=== PATIENT | female | born 1950 | race Hispanic/Latino ===

== ENCOUNTER 2019-12-18 02:54 | Inpatient (IN) | payer BC, OTHER ==
[~2019-12-18] VITALS: Ht 157.5 cm; Wt 74.5 kg
[2019-12-18 03:30] LABS: BASOPHILS % (AUTO) 0.5 % (0.0-5.0); HEMATOCRIT 38.2 % (36-48); LYMPHOCYTES % (AUTO) 39.7 % (21.0-51.0); MEAN CORPUSCULAR HEMOGLOBIN 29.3 pg (27.0-33.0); MEAN CORPUSCULAR HGB CONC 33.8 g/dL (32.0-36.0); MEAN CORPUSCULAR VOLUME 86.8 fL (79-99); NEUTROPHILS % (AUTO) 45.4 % (40.0-77.0); PLATELET COUNT (AUTO) 209 K/uL (130-400); RED CELL DISTRIBUTION WIDTH 13.3 % (11.0-15.5); WHITE BLOOD COUNT (AUTO) 9.4 K/uL (4.8-10.8)
[2019-12-18 03:38] LABS: CREATININE 0.8 mg/dL (0.5-1.5); POTASSIUM 5.8 mmol/L (3.5-5.1)
[2019-12-18 03:40] LABS: APPEARANCE,URINE Clear (CLEAR); BILIRUBIN,URINE Negative (NEGATIVE); COLOR,URINE Yellow (YELLOW); GLUCOSE, URINE (UA) Negative (NEGATIVE); KETONES,URINE Negative (NEGATIVE); LEUKOCYTE ESTERASE ,URINE Trace (NEGATIVE); NITRATE,URINE Negative (NEGATIVE); OCCULT BLOOD,URINE Moderate (NEGATIVE); PROTEIN,URINE Negative (NEGATIVE); UROBILINOGEN,URINE 0.2 mg/dL (0.2-1.0)
[2019-12-18 03:43] LABS: BILIRUBIN,TOTAL 0.4 mg/dL (0.2-1.0); INR 0.95 (0.85-1.15); PARTIAL THROMBOPLASTIN TIME 26.2 SEC (26.3-35.5); PROTHROMBIN TIME 10.3 SEC (9.6-11.6); TOTAL PROTEIN, SERUM 7.6 g/dL (6.0-8.3)
[2019-12-18 03:49] LABS: BACTERIA,URINE None Seen /HPF (None Seen); MUCUS,URINE Rare LPF (None Seen); RBC,URINE 0-1 /HPF (0-1); SQUAMOUS EPITHELIAL CELL,UR Few /HPF (0-2); WBC,URINE 0-1 /HPF (0-1)
[2019-12-18] MEDS: SODIUM CHLORIDE 0.9% 1000ML 1,000 ML IV SCH ×2 (05:36→15:36)
[2019-12-18] MEDS ORDERED: METRONIDAZOLE 500MG/100ML BAG 100 ML IV SCH (05:45)
[2019-12-18] MEDS ORDERED: HYDRALAZINE HCL 20 MG/ML VIAL IV PRN (05:45)
[2019-12-18] MEDS ORDERED: ONDANSETRON HCL 4 MG/2 ML VIAL IV PRN (05:45)
[2019-12-18] MEDS ORDERED: LACTULOSE 20 GM/30 ML UDCUP PO PRN (05:45)
[2019-12-18] MEDS ORDERED: ACETAMINOPHEN 325 MG TAB PO PRN ×2 (05:45)
[2019-12-18] MEDS ORDERED: METRONIDAZOLE 500MG/100ML BAG 100 ML ONE (05:53)
[2019-12-18] MEDS ORDERED: FAMOTIDINE/PF 20 MG/2 ML VIAL IV ONE (08:22)
[2019-12-18] MEDS ORDERED: FAMOTIDINE/PF 20 MG/2 ML VIAL IV SCH (09:00)
[2019-12-18 09:35] VITALS: BP 150/79
[2019-12-18 09:47] LABS: HEMATOCRIT 36.6 % (36-48)
[2019-12-18] MEDS ORDERED: CARV6.25 PO (11:30)
[2019-12-18] MEDS ORDERED: LISI-613 PO (11:30)
[2019-12-18] MEDS ORDERED: ALEN70TA69 PO (11:30)
[2019-12-18] MEDS ORDERED: ATOR10TA69 PO (11:30)
[2019-12-18] MEDS ORDERED: ISOS20TA7 PO (11:30)
[2019-12-18] MEDS ORDERED: LEVO100 PO (11:30)
[2019-12-18] MEDS ORDERED: ASPI-556 PO (11:31)
[2019-12-18 12:01] VITALS: BP 124/71
[2019-12-18] MEDS: PANTOPRAZOLE 40 MG/VIAL IVP SCH (15:29)
[2019-12-18 15:49] VITALS: BP 142/78
[2019-12-18 19:53] VITALS: BP 122/68
[2019-12-18 21:00] LABS: HEMATOCRIT 33.2 % (36-48)
[2019-12-18 23:21] VITALS: BP 152/79
[2019-12-18 23:32] LABS: HEMATOCRIT 31.4 % (36-48)
[2019-12-19 03:47] VITALS: BP 121/78
[2019-12-19 05:43] LABS: BASOPHILS % (AUTO) 0.6 % (0.0-5.0); EOSINOPHILS % (AUTO) 6.8 % (0.0-8.0); LYMPHOCYTES % (AUTO) 36.5 % (21.0-51.0); MEAN CORPUSCULAR HEMOGLOBIN 28.8 pg (27.0-33.0); MEAN CORPUSCULAR HGB CONC 32.8 g/dL (32.0-36.0); MEAN CORPUSCULAR VOLUME 87.9 fL (79-99); MONOCYTES % (AUTO) 8.7 % (3.0-13.0); NEUTROPHILS % (AUTO) 46.9 % (40.0-77.0); PLATELET COUNT (AUTO) 178 K/uL (130-400); RED BLOOD CELL COUNT(AUTO) 3.64 MIL/uL (4.00-5.50); RED CELL DISTRIBUTION WIDTH 13.4 % (11.0-15.5); WHITE BLOOD COUNT (AUTO) 6.6 K/uL (4.8-10.8)
[2019-12-19 06:03] LABS: ALBUMIN 2.6 g/dL (3.5-5.0); BILIRUBIN,TOTAL 0.3 mg/dL (0.2-1.0); CREATININE 0.9 mg/dL (0.5-1.5); POTASSIUM 3.9 mmol/L (3.5-5.1)
[2019-12-19 08:50] VITALS: BP 115/74
[2019-12-19] MEDS: PANTOPRAZOLE 40 MG/VIAL IVP SCH (08:57)
[2019-12-19 12:37] VITALS: BP 110/63
[2019-12-19 16:07] VITALS: BP 155/59
--- NOTE | 2019-12-19 19:53 | NUR ---
D/C PLAN CM spoke to pt regarding d/c planning. Pt is [place] and lives with spouse. States spouse can assist in care if needed. Denies having any home health or provider services. Plan to home. No needs verbalized or identified. CM to f/u. Addendum: 12/19/19 at 1954 by TEETEE PUGH CM Amended: Links added.
[2019-12-19 20:00] VITALS: BP 138/74
[2019-12-19] MEDS: ATORVASTATIN CALCIUM 10 MG TABLET PO SCH (20:27)
[2019-12-19] MEDS ORDERED: LISINOPRIL 20 MG TABLET PO SCH (21:00)
[2019-12-20] VITALS (12 sets, daily range): BP systolic 90–133; BP diastolic 53–75
[2019-12-20 05:30] LABS: ALBUMIN 2.6 g/dL (3.5-5.0); BILIRUBIN,TOTAL 0.2 mg/dL (0.2-1.0); CREATININE 0.7 mg/dL (0.5-1.5); TOTAL PROTEIN, SERUM 6.3 g/dL (6.0-8.3)
[2019-12-20] MEDS: PANTOPRAZOLE 40 MG/VIAL IVP SCH (08:58)
[2019-12-20] MEDS ORDERED: CARVEDILOL 6.25 MG TABLET PO SCH (09:00)
[2019-12-20] MEDS ORDERED: LEVOTHYROXINE 100 MCG TABLET PO SCH (09:00)
[2019-12-20] MEDS ORDERED: ISOSORBIDE MONONITRATE 20 MG TABLET PO SCH (09:00)
[2019-12-20] MEDS: AMOXICILLIN/POTASSIUM CLAV 500-125 TABLET PO SCH ×2 (11:17→20:34)
[2019-12-20] MEDS: ATORVASTATIN CALCIUM 10 MG TABLET PO SCH (20:34)
[2019-12-21 04:00] VITALS: BP 122/69
[2019-12-21] MEDS: SODIUM CHLORIDE 0.9% 1000ML 1,000 ML IV SCH ×2 (04:21→04:23)
[2019-12-21 05:41] LABS: BASOPHILS % (AUTO) 0.3 % (0.0-5.0); EOSINOPHILS % (AUTO) 5.7 % (0.0-8.0); LYMPHOCYTES % (AUTO) 34.3 % (21.0-51.0); MEAN CORPUSCULAR HEMOGLOBIN 28.8 pg (27.0-33.0); MEAN CORPUSCULAR HGB CONC 32.7 g/dL (32.0-36.0); MEAN CORPUSCULAR VOLUME 88.2 fL (79-99); MONOCYTES % (AUTO) 8.1 % (3.0-13.0); NEUTROPHILS % (AUTO) 51.3 % (40.0-77.0); PLATELET COUNT (AUTO) 165 K/uL (130-400); RED CELL DISTRIBUTION WIDTH 13.6 % (11.0-15.5); WHITE BLOOD COUNT (AUTO) 5.8 K/uL (4.8-10.8)
[2019-12-21 05:54] LABS: ALBUMIN 2.4 g/dL (3.5-5.0); BILIRUBIN,TOTAL 0.2 mg/dL (0.2-1.0); CREATININE 0.6 mg/dL (0.5-1.5); POTASSIUM 3.7 mmol/L (3.5-5.1); TOTAL PROTEIN, SERUM 5.8 g/dL (6.0-8.3)
[2019-12-21] MEDS ORDERED: LEVOTHYROXINE 100 MCG TABLET PO SCH (06:30)
[2019-12-21 07:20] VITALS: BP 145/80
[2019-12-21] MEDS: PANTOPRAZOLE 40 MG/VIAL IVP SCH (08:53)
[2019-12-21] MEDS: AMOXICILLIN/POTASSIUM CLAV 500-125 TABLET PO SCH (08:53)
[2019-12-21] MEDS ORDERED: PANT40TA55 PO (08:55)
[2019-12-21] MEDS ORDERED: AMOX1TAB15 PO (08:55)
[2019-12-21] MEDS ORDERED: CARV6.25 PO (08:55)
[2019-12-21 10:37] VITALS: BP 138/73
--- NOTE | 2019-12-21 12:29 | NUR ---
DISCHARGE PATIENT GIVEN DISCHARGE INSTRUCTIONS VIA TEACH BACK. 20G PIV TO LEFT HAND DISCONTINUED, TIP INTACT. MEDS TRANSMITTED TO [facility] IN [place] FOR BACTRIM DS AND PROTONIX. PATIENT TO FOLLOW UP WITH DR. REYES AND DR. MCDERMOTT. PATIENT STABLE AT THIS TIME. PATIENT WHEELED TO [facility] FOR DISCHARGE BY STARR ARANGO.
[2019-12-26] MEDS ORDERED: ALENDRONATE SODIUM 35 MG TAB PO SCH (06:30)
== END 2019-12-21 12:45 | disposition home or self-care (01) | DRG 378 ==
LOC: EDH 02:54 → EDHIP 05:36 → OBSVTOIN 05:36 → 3AH 08:54
PROVIDERS: ADMIT Hospitalist; ATTEND Hospitalist
DX: K57.31 Diverticulosis of large intestine without perforation or abscess with bleeding (principal); D62 Acute posthemorrhagic anemia; E44.1 Mild protein-calorie malnutrition; I95.1 Orthostatic hypotension; E87.5 Hyperkalemia; E03.9 Hypothyroidism, unspecified; K42.9 Umbilical hernia without obstruction or gangrene; E78.00 Pure hypercholesterolemia, unspecified; I10 Essential (primary) hypertension; Z87.19 Personal history of other diseases of the digestive system; Z83.3 Family history of diabetes mellitus; Z82.49 Family history of ischemic heart disease and other diseases of the circulatory system
CPT/HCPCS: 36415; 74176; 80053; 81001; 82270; 83630; 84132; 85014; 85018; 85025; 85610; 85730; 86850; 86900; 86901; 86922; 87046; 87324; C9113; G0378; J3490; J7030

== ENCOUNTER 2022-01-07 10:23 | Observation (INO) | payer OTHER ==
[~2022-01-07] VITALS: Ht 157.5 cm; Wt 73.5 kg
[~2022-01-07 10:23] MED LIST: ALEN70TA80 PO; AMOX1TAB15 PO; ATOR10TA69 PO; CARV6.25 PO; ISOS20TA85 PO; LEVO100 PO; PANT40TA55 PO
[2022-01-07 11:32] LABS: BASOPHILS % (AUTO) 0.5 % (0.0-5.0); HEMATOCRIT 40.7 % (36-48); LYMPHOCYTES % (AUTO) 42.5 % (21.0-51.0); MEAN CORPUSCULAR HEMOGLOBIN 28.5 pg (27.0-33.0); MEAN CORPUSCULAR HGB CONC 33.2 g/dL (32.0-36.0); MEAN CORPUSCULAR VOLUME 85.9 fL (79-99); MONOCYTES % (AUTO) 8.8 % (3.0-13.0); NEUTROPHILS % (AUTO) 43.8 % (40.0-77.0); PLATELET COUNT (AUTO) 204 K/uL (130-400); RED BLOOD CELL COUNT(AUTO) 4.74 MIL/uL (4.00-5.50); RED CELL DISTRIBUTION WIDTH 14.2 % (11.0-15.5); WHITE BLOOD COUNT (AUTO) 7.3 K/uL (4.8-10.8)
[2022-01-07 11:52] LABS: CREATININE 1.1 mg/dL (0.5-1.5); POTASSIUM 3.5 mmol/L (3.5-5.1)
[2022-01-07 11:55] LABS: INR 0.95 (0.85-1.15); PROTHROMBIN TIME 10.4 SEC (9.6-11.6)
[2022-01-07 11:56] LABS: ALBUMIN 2.8 g/dL (3.5-5.0); BILIRUBIN,TOTAL 0.3 mg/dL (0.2-1.0); PARTIAL THROMBOPLASTIN TIME 29.1 SEC (26.3-35.5); TOTAL PROTEIN, SERUM 7.7 g/dL (6.0-8.3)
[2022-01-07] MEDS ORDERED: 0.9%NACL 1000ML 1,000 ML IV SCH (13:30)
[2022-01-07] MEDS ORDERED: HYDRALAZINE 20MG/ML VIAL IV PRN (15:30)
[2022-01-07] MEDS ORDERED: HYDROCODONE/ACETAMINOPHEN 5/325 MG TAB PO PRN ×2 (15:30)
[2022-01-07] MEDS ORDERED: ACETAMINOPHEN 325 MG TAB PO PRN (15:30)
[2022-01-07] MEDS ORDERED: LACTULOSE 20 GM/30 ML UDCUP PO PRN (15:30)
[2022-01-07] MEDS ORDERED: ONDANSETRON 4MG INJ IVP PRN (15:30)
[2022-01-07] MEDS ORDERED: ACETAMINOPHEN 650 MG SUPPOSITORY RC PRN (15:30)
[2022-01-07] MEDS ORDERED: CLONIDINE HCL 0.1 MG TABLET PO PRN (15:30)
[2022-01-07] MEDS ORDERED: TEMAZEPAM 15 MG CAPSULE PO PRN (15:30)
[2022-01-07 15:53] LABS: HEMATOCRIT 38.8 % (36-48)
[2022-01-07] MEDS ORDERED: LIDOCAINE HCL-MPF 1% 2ML VIAL IJ PRN ×2 (16:30)
[2022-01-07] MEDS ORDERED: POTASSIUM CHLORIDE 20MEQ/100ML 100 ML IV PRN (16:30)
[2022-01-07] MEDS ORDERED: POTASSIUM CHLORIDE 10MEQ/100ML 100 ML IV PRN (16:30)
[2022-01-07] MEDS ORDERED: KCL 20 MEQ ERTAB PO PRN (16:30)
[2022-01-07 16:50] VITALS: BP 132/66
[2022-01-07] MEDS ORDERED: MAGNESIUM CITRATE 296 ML SOLUTION PO ONE (17:30)
[2022-01-07] MEDS ORDERED: PEG 3350/NA SULF,BICARB,CL/KCL 4000 ML SOLN PO ONE (18:30)
[2022-01-07] MEDS ORDERED: LISI5TAB21 PO (19:43)
[2022-01-07 20:00] VITALS: BP 147/86
[2022-01-07 20:05] VITALS: BP 140/88
[2022-01-07 20:10] VITALS: BP 132/79
[2022-01-07] MEDS: POTASSIUM CHLORIDE 10% ELIXIR 20 MEQ/15 ML UDCUP PO PRN (21:25)
[2022-01-07 22:08] LABS: HEMATOCRIT 46.1 % (36-48)
[2022-01-07 23:11] VITALS: BP 144/78
[2022-01-08] VITALS (18 sets, daily range): BP systolic 106–163; BP diastolic 50–104
[2022-01-08] MEDS: POTASSIUM CHLORIDE 10% ELIXIR 20 MEQ/15 ML UDCUP PO PRN (00:22)
[2022-01-08 02:51] LABS: HEMATOCRIT 39.3 % (36-48); MEAN CORPUSCULAR HEMOGLOBIN 28.5 pg (27.0-33.0); MEAN CORPUSCULAR HGB CONC 32.8 g/dL (32.0-36.0); MEAN CORPUSCULAR VOLUME 86.8 fL (79-99); RED BLOOD CELL COUNT(AUTO) 4.53 MIL/uL (4.00-5.50); RED CELL DISTRIBUTION WIDTH 14.4 % (11.0-15.5)
[2022-01-08 03:27] LABS: MAGNESIUM 2.2 mg/dL (1.80-2.40); PHOSPHORUS 2.8 mg/dL (2.5-4.9); POTASSIUM 4.5 mmol/L (3.5-5.1)
[2022-01-08] MEDS: INSULIN HUMULIN R 100 UNIT/ML 3ML SQ SCH ×3 (05:50→20:23)
[2022-01-08] MEDS ORDERED: OCTREOTIDE ACETATE 1,250 MCG in 0.9% NACL 250ML 250 ML IV SCH (08:00)
[2022-01-08] MEDS ORDERED: PANTOPRAZOLE 40 MG/VIAL IVP SCH (09:00)
[2022-01-08] MEDS ORDERED: PANTOPRAZOLE 40 MG/VIAL IV SCH (09:00)
[2022-01-08] MEDS ORDERED: PROPOFOL 10 MG/ML 20ML VIAL IV ONE (16:56)
[2022-01-08] MEDS: HYDROCORTISONE 25 MG SUPPOSITORY PR SCH (20:55)
[2022-01-09 04:00] VITALS: BP 132/68
[2022-01-09 04:05] VITALS: BP 134/72
[2022-01-09 04:10] VITALS: BP 140/69
[2022-01-09 05:11] LABS: BASOPHILS % (AUTO) 0.5 % (0.0-5.0); EOSINOPHILS % (AUTO) 2.2 % (0.0-8.0); HEMATOCRIT 39.4 % (36-48); MEAN CORPUSCULAR HEMOGLOBIN 28.1 pg (27.0-33.0); MEAN CORPUSCULAR VOLUME 87.9 fL (79-99); MONOCYTES % (AUTO) 7.2 % (3.0-13.0); NEUTROPHILS % (AUTO) 51.6 % (40.0-77.0); PLATELET COUNT (AUTO) 203 K/uL (130-400); RED BLOOD CELL COUNT(AUTO) 4.48 MIL/uL (4.00-5.50); RED CELL DISTRIBUTION WIDTH 14.1 % (11.0-15.5); WHITE BLOOD COUNT (AUTO) 6.5 K/uL (4.8-10.8)
[2022-01-09 05:27] LABS: ALBUMIN 2.5 g/dL (3.5-5.0); BILIRUBIN,TOTAL 0.3 mg/dL (0.2-1.0); CREATININE 0.9 mg/dL (0.5-1.5); POTASSIUM 4.3 mmol/L (3.5-5.1); TOTAL PROTEIN, SERUM 7.2 g/dL (6.0-8.3)
[2022-01-09] MEDS: INSULIN HUMULIN R 100 UNIT/ML 3ML SQ SCH ×2 (05:52→11:30)
[2022-01-09 08:19] VITALS: BP 127/75
[2022-01-09] MEDS: HYDROCORTISONE 25 MG SUPPOSITORY PR SCH (09:00)
[2022-01-09] MEDS ORDERED: PANTOPRAZOLE 40 MG TAB DR PO SCH (09:00)
[2022-01-09] MEDS ORDERED: LEVOTHYROXINE 100 MCG TABLET PO SCH (09:00)
[2022-01-09] MEDS ORDERED: LISINOPRIL 5 MG TABLET PO SCH (09:00)
[2022-01-09 12:38] VITALS: BP 119/77
== END 2022-01-09 15:00 | disposition home or self-care (01) ==
LOC: EDH 10:23 → EDHIP 15:08 → 3AH 16:32
PROVIDERS: ADMIT Internal Medicine Critical Care Medicine; ATTEND Internal Medicine Critical Care Medicine
DX: U07.1 COVID-19 (principal); K64.1 Second degree hemorrhoids; K63.5 Polyp of colon; K21.00 Gastro-esophageal reflux disease with esophagitis, without bleeding; K29.00 Acute gastritis without bleeding; K92.1 Melena; K57.32 Diverticulitis of large intestine without perforation or abscess without bleeding; D62 Acute posthemorrhagic anemia; R63.0 Anorexia; I12.9 Hypertensive chronic kidney disease with stage 1 through stage 4 chronic kidney disease, or unspecified chronic kidney disease; N18.30 Chronic kidney disease, stage 3 unspecified; E78.5 Hyperlipidemia, unspecified; E78.00 Pure hypercholesterolemia, unspecified; I25.10 Atherosclerotic heart disease of native coronary artery without angina pectoris; R63.4 Abnormal weight loss; E05.00 Thyrotoxicosis with diffuse goiter without thyrotoxic crisis or storm; E43 Unspecified severe protein-calorie malnutrition; E03.9 Hypothyroidism, unspecified; Z90.49 Acquired absence of other specified parts of digestive tract; Z79.899 Other long term (current) drug therapy
CPT/HCPCS: 99285; 80053 ×2; 85025 ×2; 85610; 85730; 85014 ×2; 85018 ×2; 82948 ×6; 82270; 36415 ×3; 87635; 74176; 96365; 96366 ×2; 96375; 83735; 84100; 80048; 85027; 97161; 43239; 45380; G0378 ×46; J2704; C9113; J2354; J7050; A4620; A4215; A4223; A4222; J7030; A4606; 86677